=== PATIENT | female | born 1980 | race Two or more races ===

== ENCOUNTER 2018-03-10 03:08 | Emergency (ER) | payer BC ==
[~2018-03-10] VITALS: Ht 149.9 cm; Wt 63.5 kg
[2018-03-10] MEDS ORDERED: BACTRIM DS TAB1 EACH PO (08:41)
[2018-03-10] MEDS ORDERED: OMEPRAZOLE20 M1 PO (08:41)
== END 2018-03-10 10:55 | disposition home or self-care (01) ==
LOC: ER 03:08
DX: L03.116 Cellulitis of left lower limb (principal)